=== PATIENT | female | born 1980 | race Caucasian/White ===

== ENCOUNTER 2016-11-12 18:23 | Emergency (ER) | payer OTHER ==
[~2016-11-12] VITALS: Wt 72.6 kg
[~2016-11-12 18:23] MED LIST: ADDERALL10 MG PO; AMOXICILLIN500 MG PO; AMOXIL500 MG PO; ANAPROX DS550 MG PO; BACTRIM DS 8001 TA1 PO; FLEXERIL10 MG PO; FLEXERIL5 MG PO; FLINTSTONES1 CTB PO; Fioricet 325 MG1 TAB PO; IBU-TAB800 MG PO; K-DUR 20MEQ20 MEQ PO; KEFLEX500 MG PO; MACROBID100 M1 PO; MOTRIN800 MG PO; NKHM; PEN-VEE K500 MG PO; PENICILLIN V500 MG PO; PERCOCET 325 MG1 TA6 PO; PREDNISONE10 MG PO; PRENATAL1 TA1 PO; PROVERA5 MG PO; ROBAXIN500 MG PO; ROBITUSSIN DM 105 ML PO; SUBOXONE 2 MG-01 TA2 SL; SUBOXONE 8 MG-21 TA2 SL; SUBUTEX8 M1 SL; TRAMADOL HCL50 MG PO; TYLENOL 8 HOUR650 MG PO; ULTRAM50 MG PO; VALTREX1 GM PO; VENTOLIN H0.09 MG/AC INH; ZITHROMAX Z PA250 MG PO; Zofran4 MG PO; [UNRECOGNIZED DRUG - OTHER] PO
[2016-11-12 18:41] VITALS: BP 136/86
[2016-11-12] MEDS ORDERED: ZOFRAN ODT4 MG SL (19:07)
[2016-11-12] MEDS ORDERED: CLINDAMYCIN HC300 MG PO (19:07)
== END 2016-11-12 19:32 | disposition home or self-care (01) ==
LOC: ED 18:23
DX: T36.0X5A Adverse effect of penicillins, initial encounter (principal); K04.7 Periapical abscess without sinus; F17.200 Nicotine dependence, unspecified, uncomplicated

== ENCOUNTER 2017-05-19 21:43 | Inpatient (IN) | payer OTHER ==
[~2017-05-19] VITALS: Ht 175.2 cm; Wt 68.5 kg
--- NOTE | ~2017-05-19 | O ---
[place], [place] OPERATIVE NOTE NAME: RODRIGO MIN UNIT #: [id number] ROOM: 525 DOCTOR: BLESSING DOSS MD BIRTHDATE: [birth year] DOS: GASTRO-ENDOSCOPIC REPORT HISTORY OF PRESENT ILLNESS: A 37-year-old patient who has presented with chief complaint of abdominal pain amongst one of her complaints and the patient with history of recreational drugs and nicotine ____. The CT scan of the abdomen was suspecting for right-sided colitis. Drug screening was positive for amphetamines and cocaine. PAST MEDICAL HISTORY: Not following medically. PAST SURGICAL HISTORY: Hysterectomy. SOCIAL HISTORY: As identified drug and nicotine. FAMILY HISTORY: Noncontributory. ALLERGIES: PENICILLIN. PROCEDURE: Today's procedure part of investigation is colonoscopy, plus snare polypectomy, plus tattoo marking of the site of the polypectomy. PREMEDICATION: Versed and Diprivan. SCOPE: Olympus forward-viewing colonoscope 10L video. REPORT: After putting the patient in the left lateral position and after application of lubricant to the scope, the scope was introduced. Thereafter, under direct visualization, I advanced through a tortuous colon with retained large volume of liquid stool. A polypoid lesion somewhere about proximal transverse colon or so was identified. With the snare deeply was polypectomized and site was deeply coagulated. Tattoo marking of 2 mL was placed in case the polyp tissue is going to be carcinoma, so that this area can be addressed. Base of the cecum explored, appendiceal orifice identified, ileocecal valve was defined. No colitis seen. The patient extubated after the polyp sample was removed, tolerated procedure well. IMPRESSION: Tortuous colon, Irregular polypoid lesion at proximal transverse colon, status post snare polypectomy with ____ coagulation. I remain concerned about the malignancy on the tissue. Polypectomy site has been tattoo marked for future reference. PLAN AND DISCUSSION: Please follow as outpatient and clinical reassessment. [place], [place] OPERATIVE NOTE NAME: RODRIGO MIN UNIT #: [id number] ROOM: 525 DOCTOR: BLESSING DOSS MD BIRTHDATE: [birth year] BLESSING DOSS MD CM:OPRECORD:OPERATIVE NOTE 1504 [id number] BLESSING DOSS MD 05/21/17 1729 interface
[~2017-05-19 21:43] MED LIST changes: +CLINDAMYCIN HC300 MG PO; +ZOFRAN ODT4 MG SL
[2017-05-19 21:45] VITALS: BP 141/81
[2017-05-19 22:10] VITALS: BP 122/66
--- NOTE | 2017-05-19 22:19 | NUR ---
PATIENT GIVEN URINE SPECIMEN CUP. INFORMED PATIENT THAT WE NEED A SPECIMEN SOON SHE CAN. PATIENT WILL USE CALL LIGHT WHEN SHE IS READY TO URINATE.
[2017-05-19 22:34] LABS: BASO % 0.3 % (0.0-1.0); EOS % 0.6 % (1.0-4.0); HEMATOCRIT 38.4 % (37.0-47.0); HEMOGLOBIN 13.3 g/dl (12.0-16.0); LYMPH # 0.5 10*3/uL (1.3-4.4); LYMPH % 6.7 % (27.0-41.0); MEAN CELL VOLUME 83.1 fl (81.0-99.0); MEAN CORPUSCULAR HGB 28.8 pg (27.0-31.0); MEAN CORPUSCULAR HGB CONC 34.6 g/dl (33.0-37.0); MEAN PLATELET VOLUME 10.2 fl (9.6-12.3); MONO # 0.4 10*3/uL (0.1-1.0); MONO % 5.2 % (3.0-9.0); NEUT # 6.2 10*3/uL (2.3-7.9); NEUT % 87.1 % (47.0-73.0); PLATELET COUNT AUTOMATED 157 10*3/uL (130-400); RED BLOOD COUNT 4.62 10*6/uL (4.10-5.10); WHITE BLOOD COUNT 7.2 10*3/uL (4.8-10.8)
--- NOTE | 2017-05-19 22:45 | NUR ---
PATIENT RETURNED TO ROOM FROM CAT SCAN. IV FLUIDS INFUSING.
[2017-05-19 22:51] LABS: ALBUMIN 3.6 gm/dl (3.1-4.5); ALKALINE PHOSPHATASE 90 U/L (45-117); BUN 10 mg/dl (7-24); CHLORIDE 105 mmol/L (98-107); CREATININE 0.86 mg/dL (0.55-1.02); POTASSIUM 3.3 mmol/L (3.5-5.1); SGOT/AST 70 IU/L (3-35); SGPT/ALT 99 U/L (12-78); SODIUM 139 mmol/L (136-145); TOTAL PROTEIN 7.8 gm/dL (6.4-8.2)
[2017-05-19 22:54] LABS: TROPONIN I < 0.015 ng/ml (<0.045)
[2017-05-19 23:03] VITALS: BP 109/59
[2017-05-19 23:11] LABS: BILIRUBIN NEGATIVE (NEGATIVE); BLOOD NEGATIVE (NEGATIVE); CLARITY SL CLOUDY (CLEAR); COLOR YELLOW (YELLOW); GLUCOSE NEGATIVE (NEGATIVE); KETONE NEGATIVE (NEGATIVE); LEUKO ESTERASE NEGATIVE (NEGATIVE); NITRITE NEGATIVE (NEGATIVE); PH 6.5 (5.0-9.0); UROBILINOGEN 0.2 E.U./dl (0.2-1.0)
[2017-05-19 23:20] LABS: URINE AMPHETAMINES > 1000 (1000ng/ml); URINE BARBITURATES < 200 (200ng/ml); URINE BENZODIAZEPINES < 200 (200ng/ml); URINE CANNABINOIDS (THC) < 50 (50ng/ml); URINE COCAINE > 300 (300ng/ml); URINE METHADONE < 300 (300ng/ml); URINE OPIATES < 300 (300ng/ml)
[2017-05-19 23:24] LABS: BACTERIA 2+; EPITHELIAL CELLS 30-35; YEAST 1+
[2017-05-19 23:25] LABS: URINE PHENCYCLIDINE < 25 (25ng/ml)
[2017-05-20] VITALS: BP 112/58
[2017-05-20 00:05] VITALS: BP 112/58
--- NOTE | 2017-05-20 00:32 | NUR ---
A 37, admitted to , under the services of TOBI Dawson DO with a diagnosis of COLITIS AND SEPSIS. Chief complaint is NOT FEELING WELL THE LAST FEW DAYS, FEVER, ABDOMINAL TENDERNESS IN ALL QUADRANTS, PATIENT WAS UNRESPONSIVE PER FAMILY, EMS CALLED EMS REPORTS PATIENT WAS RESPONSIVE TO VOICE AND STIMULI. Patient arrived via BED from ER. Monitor applied. Initial assessment completed. Vital signs taken and recorded. TOBI DAWSON DO notified of admission to the unit. Orders received. See assessment for past medical history, medications and allergies. Patient and/or family oriented to unit. [facility] visitation policy reviewed. Clothing/patient valuable form completed. ALEENA COVINGTON
--- NOTE | 2017-05-20 01:30 | NUR ---
LAB HERE AND ALEX TROPONIN LEVEL A CORRECT TIME FROM LAST ONE. NEXT DRAW TIME IS 0430.
--- NOTE | 2017-05-20 03:40 | NUR ---
24 HR chart check completed.
[2017-05-20 04:39] LABS: BASO # 0.1 10*3/uL (0.0-0.1); BASO % 0.3 % (0.0-1.0); EOS % 0.2 % (1.0-4.0); HEMATOCRIT 36.1 % (37.0-47.0); HEMOGLOBIN 12.2 g/dl (12.0-16.0); LYMPH # 1.2 10*3/uL (1.3-4.4); LYMPH % 8.4 % (27.0-41.0); MEAN CELL VOLUME 84.3 fl (81.0-99.0); MEAN CORPUSCULAR HGB 28.5 pg (27.0-31.0); MEAN CORPUSCULAR HGB CONC 33.8 g/dl (33.0-37.0); MEAN PLATELET VOLUME 9.8 fl (9.6-12.3); MONO # 0.9 10*3/uL (0.1-1.0); NEUT # 12.3 10*3/uL (2.3-7.9); NEUT % 84.8 % (47.0-73.0); PLATELET COUNT AUTOMATED 171 10*3/uL (130-400); RED BLOOD COUNT 4.28 10*6/uL (4.10-5.10); RED CELL DISTRI WIDTH 14.2 % (0-14.5); WHITE BLOOD COUNT 14.6 10*3/uL (4.8-10.8)
[2017-05-20 04:49] LABS: ACT PARTIAL THROMBO TIME 29.1 SECONDS (20.8-31.5); INTERNATIONAL NORM RATIO 1.1 (2.0-3.5)
[2017-05-20 05:09] LABS: BUN 9 mg/dl (7-24); CHLORIDE 107 mmol/L (98-107); HDL CHOLESTEROL 39 mg/dl (40-60); POTASSIUM 3.9 mmol/L (3.5-5.1); SODIUM 140 mmol/L (136-145); TRIGLYCERIDES 48 mg/dl (<150); VLDL CHOLESTEROL 10 mg/dL (6-40)
[2017-05-20 05:15] LABS: CHOLESTEROL 95 mg/dL (<200); LDL CHOLESTEROL 46 mg/dL (9-159); THYROID STIM HORMONE (HS) 0.915 uIU/ml (0.358-4.75)
[2017-05-20 06:26] LABS: VITAMIN D, 25-HYDROXY 19.6 ng/mL (30-100)
[2017-05-20] MEDS ORDERED: ADDERALL 10 MG10 MG PO (06:45)
--- NOTE | 2017-05-20 08:00 | NUR ---
PATIENT RESTING IN BED. ADMITS TO SOME PAIN BUT IS REFUSING PAIN MEDICATION AT THIS TIME. VOICES NO OTHER COMPLAINTS. BED IS IN LOW POSITION. CALL LIGHT IS WITHIN REACH.
[2017-05-20 08:03] VITALS: BP 96/50
--- NOTE | 2017-05-20 08:30 | NUR ---
WATCH TECHNICIAN VS. PT IS ASLEEP AND DOESNT WAKEN TO CALLING HER NAME.
[2017-05-20 11:53] VITALS: BP 113/72
--- NOTE | 2017-05-20 12:59 | NUR ---
DR DOSS NOTIFIED OF CONSULT. NEW ORDERS RECEIVED.
[2017-05-20 16:48] VITALS: BP 110/63
[2017-05-20 20:00] VITALS: BP 102/55
--- NOTE | 2017-05-20 21:05 | NUR ---
24 HR chart check completed.
[2017-05-21] VITALS (8 sets, daily range): BP systolic 82–120; BP diastolic 42–70
--- NOTE | 2017-05-21 06:22 | NUR ---
PT UNABLE TO DESCRIBE A CLEAR STOOL. FLEETS ENEMA GIVEN PER ORDER. SEE MAR.
--- NOTE | 2017-05-21 07:02 | NUR ---
PT. CURRENTLY UP IN BATHROOM. UNABLE TO REPORT RESULTS OF FLEETS ENEMA AT THIS TIME.
[2017-05-21 08:13] LABS: HEPATITIS B SURFACE AG Negative (Negative)
--- NOTE | 2017-05-21 08:15 | NUR ---
PT UP IN BATHROOM WASHING UP FOR COLONOSCOPY, PT ADMINISTERED FLEETS ENEMA BY HERSELF, INSTRUCTED PT NOT TO FLUSH TOILET SO WE CAN ASSESS HER STATUS AND IF SHE REQUIRES FURTHER ENEMAS.
--- NOTE | 2017-05-21 08:30 | NUR ---
DR PATRICIO IN TO SEE PT AT THIS TIME TO EXPLAIN COLONOSCOPY.
--- NOTE | 2017-05-21 08:45 | NUR ---
IN TO SEE PT AND TO ASSESS PROGRESS AFTER FLEETS ENEMA. PT'S STOOL IS STILL DARK BROWN LIQUID. EDUCATED PT ON COMPLETING TAP WATER ENEMAS UNTIL MORE CLEAR. PT VOICED UNDERSTANDING. PT STATES SHE CAN DO ENEMAS HERSELF. INSTRUCTED PT TO CALL WHEN FIRST ENEMA IS COMPLETE SO I CAN ASSESS RESULTS.
[2017-05-21 09:13] LABS: ALBUMIN 3.1 gm/dl (3.1-4.5); BASO % 0.6 % (0.0-1.0); BUN 10 mg/dl (7-24); CHLORIDE 108 mmol/L (98-107); EOS # 0.3 10*3/uL (0.0-0.4); HEMATOCRIT 35.9 % (37.0-47.0); HEMOGLOBIN 11.8 g/dl (12.0-16.0); LYMPH # 2.3 10*3/uL (1.3-4.4); LYMPH % 35.1 % (27.0-41.0); MEAN CELL VOLUME 85.1 fl (81.0-99.0); MEAN CORPUSCULAR HGB CONC 32.9 g/dl (33.0-37.0); MEAN PLATELET VOLUME 10.6 fl (9.6-12.3); MONO # 0.7 10*3/uL (0.1-1.0); MONO % 9.9 % (3.0-9.0); NEUT # 3.2 10*3/uL (2.3-7.9); NEUT % 49.2 % (47.0-73.0); PLATELET COUNT AUTOMATED 172 10*3/uL (130-400); POTASSIUM 3.7 mmol/L (3.5-5.1); RED BLOOD COUNT 4.22 10*6/uL (4.10-5.10); RED CELL DISTRI WIDTH 14.2 % (0-14.5); SODIUM 141 mmol/L (136-145); WHITE BLOOD COUNT 6.6 10*3/uL (4.8-10.8)
[2017-05-21 09:18] LABS: ALKALINE PHOSPHATASE 71 U/L (45-117); CREATININE 0.74 mg/dL (0.55-1.02); SGOT/AST 75 IU/L (3-35); SGPT/ALT 97 U/L (12-78); TOTAL PROTEIN 6.9 gm/dL (6.4-8.2)
--- NOTE | 2017-05-21 09:36 | NUR ---
IN TO SEE PT'S PROGRESS WITH ENEMA, PT BACK IN BED AND TOILET FLUSHED, BUT PT STATES IT WAS PRETTY CLEAR, ASKED IF SHE WOULD LIKE TO DO ANOTHER ENEMA, PT DENIED SAID SHE DIDN'T THINK IT WAS NECESSARY. REINFORCED THAT IF SHE'S NOT PROPERLY PREPPED THEY MAY NOT GET A GOOD LOOK FOR HER COLONOSCOPY. PT VERBALIZED UNDERSTANDING, AND STATES SHE THINKS THE ONE TAP WATER WAS SUFFICIENT.
--- NOTE | 2017-05-21 12:41 | NUR ---
PT OFF FLOOR FOR COLO AT THIS TIME.
--- NOTE | 2017-05-21 15:20 | NUR ---
PT BACK FROM SURGERY AT THIS TIME.
--- NOTE | 2017-05-21 15:43 | NUR ---
SPOKE WITH DR DOSS REGARDING PT, STATES PT MAY HAVE REGULAR DIET AND SHE IS OK FOR DISCHARGE FROM THEIR STANDPOINT.
[2017-05-21] MEDS ORDERED: Vitamin D PO (15:58)
[2017-05-21] MEDS ORDERED: FLAGYL500 MG PO (15:58)
[2017-05-21] MEDS ORDERED: VITAMIN D-32000 UNIT PO (15:59)
[2017-05-21 16:03] LABS: HEPATITIS C VIRUS ANTIBODY >11.0 s/co (0.0-0.9)
--- NOTE | 2017-05-21 16:09 | NUR ---
DR REBOLLAR UPDATED THAT PT IS REQUESTING TO BE DISCHARGED, IF SHE ISN'T GOING TO BE DISCHARGED SHE WILL BE SIGNING HERSELF OUT. ALSO NOTIFIED THAT LAB CALLED AND PT IS HEP C+. STATES HE WILL BE UP TO SEE PT AND WILL DISCHARGE PT.
--- NOTE | 2017-05-21 16:27 | NUR ---
DR REBOLLAR IN TO SEE PT TO DISCUSS LAB RESULTS.
--- NOTE | 2017-05-21 17:00 | NUR ---
Discharge instructions reviewed with patient/family. Patient receptive and verbalizes understanding. Follow-up care arranged. Written instructions given to patient/family. IV site and retail sales merchandiser development removed. Pt denied need for transport to [facility]. SIDNEY LEUNG
== END 2017-05-21 17:00 | disposition home or self-care (01) | DRG 871 ==
LOC: ED 21:43 → EDHOLD 23:20 → 5E 23:20
PROVIDERS: Internal Medicine; Internal Medicine Nephrology; Student in an Organized Health Care Education/Training Program; ADMIT Internal Medicine
PROC: 0DBL8ZZ Excision of Transverse Colon, Via Natural or Artificial Opening Endoscopic (ICD-10-PCS; principal; 2017-05-21)
DX: A41.9 Sepsis, unspecified organism (principal); G93.41 Metabolic encephalopathy; R65.20 Severe sepsis without septic shock; R74.0 Nonspecific elevation of levels of transaminase and lactic acid dehydrogenase [LDH]; K63.5 Polyp of colon; F15.10 Other stimulant abuse, uncomplicated; F90.9 Attention-deficit hyperactivity disorder, unspecified type; F14.10 Cocaine abuse, uncomplicated; Z72.0 Tobacco use; Z90.710 Acquired absence of both cervix and uterus; Z88.0 Allergy status to penicillin; Z71.6 Tobacco abuse counseling; Z79.899 Other long term (current) drug therapy; Z82.5 Family history of asthma and other chronic lower respiratory diseases

== ENCOUNTER 2017-08-26 21:46 | Emergency (ER) | payer OTHER ==
[~2017-08-26] VITALS: Ht 175.2 cm; Wt 67.1 kg
[~2017-08-26 21:46] MED LIST changes: +ADDERALL 10 MG10 MG PO; +FLAGYL500 MG PO; +VITAMIN D-32000 UNIT PO; +Vitamin D PO
[2017-08-26 21:57] VITALS: BP 128/75
[2017-08-26] MEDS ORDERED: SUBOXONE 2 MG-1 EACH SL (21:59)
[2017-08-26] MEDS ORDERED: DELTASONE20 M1 PO (22:12)
== END 2017-08-26 22:25 | disposition home or self-care (01) ==
LOC: ED 21:46
DX: R21 Rash and other nonspecific skin eruption (principal); T78.40XA Allergy, unspecified, initial encounter; F17.200 Nicotine dependence, unspecified, uncomplicated; Z90.710 Acquired absence of both cervix and uterus; Z79.899 Other long term (current) drug therapy; Z88.0 Allergy status to penicillin; Y92.9 Unspecified place or not applicable

== ENCOUNTER 2017-10-10 19:03 | Emergency (ER) | payer OTHER ==
[~2017-10-10] VITALS: Ht 175.2 cm; Wt 67.1 kg
[~2017-10-10 19:03] MED LIST changes: +DELTASONE20 M1 PO; +SUBOXONE 2 MG-1 EACH SL
[2017-10-10 19:06] VITALS: BP 119/67
[2017-10-10] MEDS ORDERED: IBUPROFEN600 MG PO (19:34)
[2017-10-10] MEDS ORDERED: CLINDAMYCIN HC300 MG PO (19:34)
== END 2017-10-10 19:42 | disposition home or self-care (01) ==
LOC: ED 19:03
DX: K08.89 Other specified disorders of teeth and supporting structures (principal); Z88.0 Allergy status to penicillin; Z88.1 Allergy status to other antibiotic agents; Z79.899 Other long term (current) drug therapy

== ENCOUNTER 2018-02-02 16:03 | Emergency (ER) | payer OTHER ==
[~2018-02-02] VITALS: Ht 172.7 cm; Wt 68.0 kg
[~2018-02-02 16:03] MED LIST changes: +IBUPROFEN600 MG PO
[2018-02-02 16:05] VITALS: BP 124/56
[2018-02-02] MEDS ORDERED: INDOMETHACIN50 MG PO (17:35)
== END 2018-02-02 17:43 | disposition home or self-care (01) ==
LOC: ED 16:03
DX: M79.89 Other specified soft tissue disorders (principal); Z88.0 Allergy status to penicillin; Z88.1 Allergy status to other antibiotic agents; Z79.899 Other long term (current) drug therapy

== ENCOUNTER 2018-04-13 13:47 | Emergency (ER) | payer OTHER ==
[~2018-04-13] VITALS: Ht 172.7 cm; Wt 68.0 kg
[~2018-04-13 13:47] MED LIST changes: +INDOMETHACIN50 MG PO
[2018-04-13 13:50] VITALS: BP 130/81
[2018-04-13] MEDS ORDERED: PROAIR HFA8.5 GM INH (15:00)
[2018-04-13] MEDS ORDERED: PREDNISONE20 M1 PO (15:00)
[2018-04-13] MEDS ORDERED: TESSALON PERLE100 M1 PO (15:00)
[2018-04-13] MEDS ORDERED: ZITHROMAX250 MG PO (15:00)
== END 2018-04-13 16:30 | disposition home or self-care (01) ==
LOC: ED 13:47
DX: J40 Bronchitis, not specified as acute or chronic (principal); J02.9 Acute pharyngitis, unspecified; F17.210 Nicotine dependence, cigarettes, uncomplicated; Z88.0 Allergy status to penicillin; Z88.1 Allergy status to other antibiotic agents; Z79.899 Other long term (current) drug therapy

== ENCOUNTER 2019-07-30 16:16 | Emergency (ER) | payer OTHER ==
[~2019-07-30] VITALS: Ht 175.2 cm; Wt 63.5 kg
[~2019-07-30 16:16] MED LIST changes: +PREDNISONE20 M1 PO; +PROAIR HFA8.5 GM INH; +TESSALON PERLE100 M1 PO; +ZITHROMAX250 MG PO
[2019-07-30 16:27] VITALS: BP 127/75
[2019-07-30] MEDS ORDERED: IBU800 MG PO (16:55)
[2019-07-30] MEDS ORDERED: CLEOCIN HCL150 MG PO (16:55)
== END 2019-07-30 17:33 | disposition home or self-care (01) ==
LOC: ED 16:16
DX: K04.7 Periapical abscess without sinus (principal); B34.9 Viral infection, unspecified; K02.9 Dental caries, unspecified; J45.909 Unspecified asthma, uncomplicated; F17.200 Nicotine dependence, unspecified, uncomplicated; Z88.0 Allergy status to penicillin; Z88.1 Allergy status to other antibiotic agents; Z79.899 Other long term (current) drug therapy

== ENCOUNTER 2020-01-23 22:54 | Emergency (ER) | payer OTHER ==
[~2020-01-23] VITALS: Ht 172.7 cm; Wt 63.5 kg
[~2020-01-23 22:54] MED LIST changes: +CLEOCIN HCL150 MG PO; +IBU800 MG PO
[2020-01-23 23:56] LABS: BASO # 0.1 10*3/uL (0.0-0.1); BASO % 0.8 % (0.0-1.0); EOS # 0.5 10*3/uL (0.0-0.4); EOS % 5.2 % (1.0-4.0); HEMATOCRIT 43.3 % (37.0-47.0); LYMPH % 31.7 % (27.0-41.0); MEAN CELL VOLUME 89.1 fl (81.0-99.0); MEAN CORPUSCULAR HGB 31.9 pg (27.0-31.0); MEAN CORPUSCULAR HGB CONC 35.8 g/dl (33.0-37.0); MEAN PLATELET VOLUME 10.4 fl (9.6-12.3); MONO # 0.9 10*3/uL (0.1-1.0); MONO % 9.1 % (3.0-9.0); PLATELET COUNT AUTOMATED 197 10*3/uL (130-400); RED BLOOD COUNT 4.86 10*6/uL (4.10-5.10); RED CELL DISTRI WIDTH 13.2 % (0-14.5); WHITE BLOOD COUNT 9.5 10*3/uL (4.8-10.8)
[2020-01-24 00:13] LABS: ALBUMIN 3.2 gm/dl (3.1-4.5); ALKALINE PHOSPHATASE 130 U/L (45-117); BUN 17 mg/dl (7-24); CHLORIDE 111 mmol/L (98-107); CREATININE 0.87 mg/dL (0.55-1.02); LIPASE 195 U/L (73-393); POTASSIUM 3.2 mmol/L (3.5-5.1); SGOT/AST 127 IU/L (3-35); SGPT/ALT 238 U/L (12-78); SODIUM 140 mmol/L (136-145); TOTAL PROTEIN 6.8 gm/dL (6.4-8.2)
[2020-01-24 00:58] VITALS: BP 97/53
== END 2020-01-24 01:30 | disposition home or self-care (01) ==
LOC: ED 22:54
PROVIDERS: Nurse Practitioner Family
DX: L50.9 Urticaria, unspecified (principal); F41.9 Anxiety disorder, unspecified; J45.909 Unspecified asthma, uncomplicated; F17.200 Nicotine dependence, unspecified, uncomplicated; Z79.899 Other long term (current) drug therapy; Z79.2 Long term (current) use of antibiotics

== ENCOUNTER 2021-12-01 16:41 | Emergency (ER) | payer OTHER ==
[~2021-12-01] VITALS: Ht 175.2 cm; Wt 62.6 kg
[2021-12-01 17:26] VITALS: BP 146/79
[2021-12-01] MEDS ORDERED: VIBRA-TAB100 MG PO (17:51)
[2021-12-01] MEDS ORDERED: PREDNISONE10 MG PO (17:51)
[2021-12-01] MEDS ORDERED: PROAIR HFA8.5 GM INH (17:51)
== END 2021-12-01 18:23 | disposition home or self-care (01) ==
LOC: ED 16:41
DX: J40 Bronchitis, not specified as acute or chronic (principal); Z88.0 Allergy status to penicillin; Z88.1 Allergy status to other antibiotic agents; Z90.710 Acquired absence of both cervix and uterus; Z87.891 Personal history of nicotine dependence

== ENCOUNTER 2022-05-10 11:46 | Emergency (ER) | payer OTHER ==
[~2022-05-10] VITALS: Ht 175.2 cm; Wt 72.6 kg
[~2022-05-10 11:46] MED LIST changes: +VIBRA-TAB100 MG PO
[2022-05-10 12:09] VITALS: BP 146/87
[2022-05-10] MEDS ORDERED: MEDROL DOSEPAK4 MG PO (13:20)
== END 2022-05-10 13:33 | disposition home or self-care (01) ==
LOC: ED 11:46
DX: S46.911A Strain of unspecified muscle, fascia and tendon at shoulder and upper arm level, right arm, initial encounter (principal); F17.200 Nicotine dependence, unspecified, uncomplicated; Z88.0 Allergy status to penicillin; Z88.1 Allergy status to other antibiotic agents; Z90.710 Acquired absence of both cervix and uterus; W22.01XA Walked into wall, initial encounter; Y93.89 Activity, other specified; Y92.89 Other specified places as the place of occurrence of the external cause; Y99.8 Other external cause status

== ENCOUNTER 2024-04-09 04:23 | Emergency (ER) | payer OTHER ==
[~2024-04-09] VITALS: Ht 175.2 cm; Wt 84.4 kg
[~2024-04-09 04:23] MED LIST changes: +MEDROL DOSEPAK4 MG PO
[2024-04-09] MEDS ORDERED: Dicyclomine Hydrochloride 20 MG/10 ML OSYR PO STA (04:44)
[2024-04-09] MEDS ORDERED: MG-AL HYDROXIDE/SIMETICONE 30 ML UDC PO STA (04:44)
[2024-04-09] MEDS ORDERED: Lidocaine Hydrochloride 15 ML UDC PO STA (04:44)
[2024-04-09] MEDS ORDERED: SODIUM CHLORIDE 0.9% 1,000 ML IV ONE (04:45)
[2024-04-09 05:13] LABS: CHLORIDE 108 mmol/L (98-107); LIPASE 40 U/L (12-53)
[2024-04-09 05:18] LABS: BUN < 5 mg/dl (9-23)
[2024-04-09 05:35] LABS: BILIRUBIN Negative (Negative); BLOOD Negative (Negative); CLARITY Cloudy (Clear); COLOR Yellow (Yellow); GLUCOSE Negative (Negative); KETONE Negative (Negative); LEUKO ESTERASE Negative (Negative); NITRITE Negative (Negative); SPECIFIC GRAVITY <= 1.005 (1.001-1.030)
[2024-04-09 05:42] LABS: EPITHELIAL CELLS 16-20; MUCOUS 1+; RBC 0-2 rbc/hpf (0-2); WBC 0-2 wbc/hpf (0-5)
[2024-04-09 05:43] LABS: URINE AMPHETAMINES Positive (1000ng/ml); URINE BARBITURATES Negative (200ng/ml); URINE BENZODIAZEPINES Negative (200ng/ml); URINE CANNABINOIDS (THC) Negative (50ng/ml); URINE COCAINE Negative (300ng/ml); URINE METHADONE Negative (300ng/ml); URINE OPIATES Negative (300ng/ml); URINE PHENCYCLIDINE Negative (25ng/ml)
[2024-04-09] MEDS ORDERED: POTASSIUM CHLORIDE 20 MEQ TAB PO ONE (05:55)
[2024-04-09] MEDS ORDERED: LORazepam 2 MG/ML VIAL IV ONE (05:55)
[2024-04-09 06:02] LABS: BASO # 0.1 10*3/uL (0.0-0.1); BASO % 0.8 % (0.0-1.0); EOS # 0.2 10*3/uL (0.0-0.4); EOS % 3.2 % (1.0-4.0); HEMATOCRIT 45.3 % (37.0-47.0); MEAN CELL VOLUME 90.1 fl (81.0-99.0); MEAN CORPUSCULAR HGB 31.4 pg (27.0-31.0); MEAN CORPUSCULAR HGB CONC 34.9 g/dl (33.0-37.0); MEAN PLATELET VOLUME 10.2 fl (9.6-12.3); MONO # 0.7 10*3/uL (0.1-1.0); MONO % 9.6 % (3.0-9.0); NEUT # 4.5 10*3/uL (2.3-7.9); NEUT % 60.3 % (47.0-73.0); PLATELET COUNT AUTOMATED 209 10*3/uL (130-400); RED BLOOD COUNT 5.03 10*6/uL (4.10-5.10); RED CELL DISTRI WIDTH 13.5 % (0-14.5); WHITE BLOOD COUNT 7.5 10*3/uL (4.8-10.8)
[2024-04-09] MEDS ORDERED: ACID REDUCER10 MG PO (06:10)
[2024-04-09 06:28] VITALS: BP 12/75
[2024-04-10] MEDS ORDERED: LAMICTAL100 MG PO ×2 (07:45)
[2024-04-10] MEDS ORDERED: BUSPIRONE30 MG PO (07:45)
[2024-04-10] MEDS ORDERED: OMEPRAZOLE40 MG PO (07:46)
== END 2024-04-09 06:29 | disposition home or self-care (01) ==
LOC: ED 04:23
PROVIDERS: Internal Medicine
DX: K21.9 Gastro-esophageal reflux disease without esophagitis (principal); F41.9 Anxiety disorder, unspecified; R11.2 Nausea with vomiting, unspecified; F15.10 Other stimulant abuse, uncomplicated; F14.10 Cocaine abuse, uncomplicated; F17.200 Nicotine dependence, unspecified, uncomplicated; Z88.0 Allergy status to penicillin; Z88.1 Allergy status to other antibiotic agents; Z90.710 Acquired absence of both cervix and uterus; Z98.890 Other specified postprocedural states; Z79.899 Other long term (current) drug therapy

== ENCOUNTER 2024-04-10 07:34 | Emergency (ER) | payer OTHER ==
[~2024-04-10] VITALS: Ht 175.2 cm; Wt 81.6 kg
[~2024-04-10 07:34] MED LIST changes: +ACID REDUCER10 MG PO
[2024-04-10 07:44] VITALS: BP 161/99
[2024-04-10] MEDS ORDERED: LAMICTAL100 MG PO ×2 (07:45)
[2024-04-10] MEDS ORDERED: BUSPIRONE30 MG PO (07:45)
[2024-04-10] MEDS ORDERED: OMEPRAZOLE40 MG PO (07:46)
[2024-04-10] MEDS ORDERED: SODIUM CHLORIDE 0.9% 1,000 ML IV ONE (07:55)
[2024-04-10 08:14] LABS: BASO # 0.1 10*3/uL (0.0-0.1); EOS # 0.4 10*3/uL (0.0-0.4); EOS % 5.8 % (1.0-4.0); HEMATOCRIT 45.2 % (37.0-47.0); LYMPH # 1.8 10*3/uL (1.3-4.4); LYMPH % 29.6 % (27.0-41.0); MEAN CELL VOLUME 90.2 fl (81.0-99.0); MEAN CORPUSCULAR HGB 31.7 pg (27.0-31.0); MEAN CORPUSCULAR HGB CONC 35.2 g/dl (33.0-37.0); MEAN PLATELET VOLUME 9.9 fl (9.6-12.3); MONO # 0.6 10*3/uL (0.1-1.0); MONO % 9.1 % (3.0-9.0); NEUT # 3.3 10*3/uL (2.3-7.9); NEUT % 54.3 % (47.0-73.0); PLATELET COUNT AUTOMATED 189 10*3/uL (130-400); RED BLOOD COUNT 5.01 10*6/uL (4.10-5.10); RED CELL DISTRI WIDTH 13.6 % (0-14.5)
[2024-04-10 08:36] LABS: BUN 5 mg/dl (9-23); CHLORIDE 106 mmol/L (98-107); POTASSIUM 3.5 mmol/L (3.4-5.1)
== END 2024-04-10 09:32 | disposition home or self-care (01) ==
LOC: ED 07:34
PROVIDERS: Internal Medicine
DX: R55 Syncope and collapse (principal); F14.10 Cocaine abuse, uncomplicated; F41.9 Anxiety disorder, unspecified; F17.200 Nicotine dependence, unspecified, uncomplicated; Z88.0 Allergy status to penicillin; Z88.1 Allergy status to other antibiotic agents; Z90.710 Acquired absence of both cervix and uterus; Z98.890 Other specified postprocedural states

== ENCOUNTER 2024-04-10 20:40 | Emergency (ER) | payer OTHER ==
[~2024-04-10] VITALS: Ht 170.1 cm; Wt 80.4 kg
[~2024-04-10 20:40] MED LIST changes: +BUSPIRONE30 MG PO; +LAMICTAL100 MG PO; +OMEPRAZOLE40 MG PO
[2024-04-10 20:44] VITALS: BP 155/106
[2024-04-10] MEDS ORDERED: Ondansetron Hydrochloride 4 MG/2 ML VIAL IV ONE (20:50)
[2024-04-10] MEDS ORDERED: SODIUM CHLORIDE 0.9% 1,000 ML IV ONE (20:50)
[2024-04-10] MEDS ORDERED: IOHEXOL 300 MG/ML 100 ML VIAL IV ONE (20:55)
[2024-04-10] MEDS ORDERED: Ketorolac Tromethamine 30 MG/ML VIAL IV ONE (20:55)
[2024-04-10 21:02] LABS: BASO # 0.1 10*3/uL (0.0-0.1); EOS # 0.5 10*3/uL (0.0-0.4); EOS % 6.1 % (1.0-4.0); HEMATOCRIT 43.5 % (37.0-47.0); LYMPH # 2.8 10*3/uL (1.3-4.4); LYMPH % 37.6 % (27.0-41.0); MEAN CELL VOLUME 88.6 fl (81.0-99.0); MEAN CORPUSCULAR HGB 31.8 pg (27.0-31.0); MEAN CORPUSCULAR HGB CONC 35.9 g/dl (33.0-37.0); MONO # 0.7 10*3/uL (0.1-1.0); MONO % 9.3 % (3.0-9.0); NEUT # 3.4 10*3/uL (2.3-7.9); NEUT % 45.9 % (47.0-73.0); PLATELET COUNT AUTOMATED 205 10*3/uL (130-400); RED BLOOD COUNT 4.91 10*6/uL (4.10-5.10); RED CELL DISTRI WIDTH 13.3 % (0-14.5); WHITE BLOOD COUNT 7.4 10*3/uL (4.8-10.8)
[2024-04-10 21:18] LABS: BILIRUBIN Negative (Negative); BLOOD Negative (Negative); CLARITY Turbid (Clear); COLOR Yellow (Yellow); GLUCOSE Negative (Negative); KETONE Negative (Negative); LEUKO ESTERASE Negative (Negative); NITRITE Negative (Negative); PH 7.5 (4.5-8.0); SPECIFIC GRAVITY 1.015 (1.001-1.030)
[2024-04-10 21:24] LABS: ALKALINE PHOSPHATASE 107 U/L (46-116); CHLORIDE 111 mmol/L (98-107); LIPASE 56 U/L (12-53); POTASSIUM 3.3 mmol/L (3.4-5.1); SGPT/ALT 165 U/L (5-49); TOTAL PROTEIN 6.4 gm/dL (6.0-8.0)
[2024-04-10 21:28] LABS: BUN < 5 mg/dl (9-23)
[2024-04-11] MEDS ORDERED: POTASSIUM CHLORIDE 20 MEQ TAB PO ONE (00:25)
== END 2024-04-11 00:28 | disposition home or self-care (01) ==
LOC: ED 20:40
PROVIDERS: Physician Assistant Medical
DX: R10.13 Epigastric pain (principal); R74.01 Elevation of levels of liver transaminase levels; E87.6 Hypokalemia; K76.0 Fatty (change of) liver, not elsewhere classified; F41.9 Anxiety disorder, unspecified; F14.10 Cocaine abuse, uncomplicated; F17.200 Nicotine dependence, unspecified, uncomplicated; Z88.0 Allergy status to penicillin; Z88.1 Allergy status to other antibiotic agents; Z90.710 Acquired absence of both cervix and uterus; Z98.890 Other specified postprocedural states

== ENCOUNTER 2024-05-21 11:34 | Emergency (ER) | payer OTHER ==
[~2024-05-21] VITALS: Ht 172.7 cm; Wt 77.1 kg
[2024-05-21 11:43] VITALS: BP 158/107
[2024-05-21] MEDS ORDERED: SODIUM CHLORIDE 0.9% 1,000 ML IV ONE (11:50)
[2024-05-21 12:09] LABS: BASO % 0.8 % (0.0-1.0); EOS # 0.2 10*3/uL (0.0-0.4); EOS % 3.8 % (1.0-4.0); HEMATOCRIT 43.1 % (37.0-47.0); LYMPH # 1.7 10*3/uL (1.3-4.4); LYMPH % 31.7 % (27.0-41.0); MEAN CORPUSCULAR HGB 31.6 pg (27.0-31.0); MEAN CORPUSCULAR HGB CONC 35.5 g/dl (33.0-37.0); MONO # 0.5 10*3/uL (0.1-1.0); MONO % 8.8 % (3.0-9.0); NEUT # 2.9 10*3/uL (2.3-7.9); NEUT % 54.9 % (47.0-73.0); PLATELET COUNT AUTOMATED 213 10*3/uL (130-400); RED BLOOD COUNT 4.84 10*6/uL (4.10-5.10); RED CELL DISTRI WIDTH 13.1 % (0-14.5); WHITE BLOOD COUNT 5.3 10*3/uL (4.8-10.8)
[2024-05-21 12:09] LABS: BILIRUBIN Negative (Negative); BLOOD Negative (Negative); CLARITY Cloudy (Clear); COLOR Yellow (Yellow); GLUCOSE Negative (Negative); KETONE Trace (Negative); LEUKO ESTERASE Trace (Negative); NITRITE Negative (Negative)
[2024-05-21 12:21] LABS: BACTERIA 2+; EPITHELIAL CELLS 16-20; MUCOUS 1+
[2024-05-21 12:28] LABS: CHLORIDE 109 mmol/L (98-107); POTASSIUM 3.1 mmol/L (3.4-5.1)
[2024-05-21 12:30] LABS: BUN < 5 mg/dl (9-23)
[2024-05-21] MEDS ORDERED: POTASSIUM CHLORIDE 20 MEQ TAB PO ONE (12:40)
[2024-05-21] MEDS ORDERED: LORazepam 1 MG TAB PO ONE (13:20)
== END 2024-05-21 14:43 | disposition home or self-care (01) ==
LOC: ED 11:34
PROVIDERS: Nurse Practitioner Family
DX: F41.9 Anxiety disorder, unspecified (principal); Z20.822 Contact with and (suspected) exposure to COVID-19; E87.6 Hypokalemia; R55 Syncope and collapse; F14.10 Cocaine abuse, uncomplicated; F17.200 Nicotine dependence, unspecified, uncomplicated; Z88.0 Allergy status to penicillin; Z88.1 Allergy status to other antibiotic agents; Z90.710 Acquired absence of both cervix and uterus; Z98.890 Other specified postprocedural states; Z79.899 Other long term (current) drug therapy

== ENCOUNTER 2024-08-26 19:24 | Emergency (ER) | payer OTHER ==
[2024-08-26 19:47] VITALS: BP 162/98
[2024-08-26] MEDS ORDERED: methylPREDNISolone sod succ 125 MG VIAL IV ONE (19:55)
[2024-08-26 20:28] LABS: BASO # 0.1 10*3/uL (0.0-0.1); BASO % 0.7 % (0.0-1.0); EOS # 0.1 10*3/uL (0.0-0.4); EOS % 1.5 % (1.0-4.0); HEMATOCRIT 47.7 % (37.0-47.0); MEAN CELL VOLUME 87.7 fl (81.0-99.0); MEAN CORPUSCULAR HGB 30.9 pg (27.0-31.0); MEAN CORPUSCULAR HGB CONC 35.2 g/dl (33.0-37.0); MEAN PLATELET VOLUME 9.8 fl (9.6-12.3); MONO # 0.9 10*3/uL (0.1-1.0); MONO % 12.5 % (3.0-9.0); NEUT # 5.2 10*3/uL (2.3-7.9); NEUT % 76.3 % (47.0-73.0); PLATELET COUNT AUTOMATED 182 10*3/uL (130-400); RED BLOOD COUNT 5.44 10*6/uL (4.10-5.10); RED CELL DISTRI WIDTH 12.4 % (0-14.5); WHITE BLOOD COUNT 6.9 10*3/uL (4.8-10.8)
[2024-08-26] MEDS ORDERED: Ondansetron Hydrochloride 4 MG TAB SL ONE (20:40)
[2024-08-26 20:55] LABS: BUN 6 mg/dl (9-23); CHLORIDE 104 mmol/L (98-107); POTASSIUM 3.1 mmol/L (3.4-5.1)
[2024-08-26] MEDS ORDERED: Albuterol Sulf/Ipratropium 3 ML VIAL NEB ONE (21:05)
[2024-08-26] MEDS ORDERED: AZITHROMYCIN 250 MG TAB PO ONE (22:15)
[2024-08-26] MEDS ORDERED: MEDROL DOSEPAK4 MG PO (22:16)
[2024-08-26] MEDS ORDERED: AVPAK AZITHROM250 MG PO (22:16)
== END 2024-08-26 23:38 | disposition home or self-care (01) ==
LOC: ED 19:24
PROVIDERS: Internal Medicine
DX: J40 Bronchitis, not specified as acute or chronic (principal); F17.210 Nicotine dependence, cigarettes, uncomplicated; Z79.899 Other long term (current) drug therapy; Z20.822 Contact with and (suspected) exposure to COVID-19; Z88.1 Allergy status to other antibiotic agents; Z90.710 Acquired absence of both cervix and uterus

== ENCOUNTER 2024-10-28 07:52 | Emergency (ER) | payer OTHER ==
[~2024-10-28] VITALS: Ht 175.2 cm; Wt 74.4 kg
[~2024-10-28 07:52] MED LIST changes: +AVPAK AZITHROM250 MG PO
[2024-10-28 07:56] VITALS: BP 152/103
[2024-10-28] MEDS ORDERED: Ketorolac Tromethamine 15 MG/ML VIAL IV ONE (08:05)
[2024-10-28] MEDS ORDERED: LORazepam 1 MG TAB PO ONE (08:05)
[2024-10-28] MEDS ORDERED: SODIUM CHLORIDE 0.9% 1,000 ML IV ONE (08:05)
[2024-10-28] MEDS ORDERED: PANTOPRAZOLE SO40 MG PO (08:09)
[2024-10-28] MEDS ORDERED: BUSPIRONE HCL30 MG PO (08:09)
[2024-10-28] MEDS ORDERED: LAMOTRIGINE100 MG PO (08:10)
[2024-10-28] MEDS ORDERED: PRAZOSIN HYDROCH1 MG PO (08:11)
[2024-10-28] MEDS ORDERED: MAVYRET 100-401 EACH PO (08:11)
[2024-10-28] MEDS ORDERED: METOPROLOL SUCC25 M2 PO (08:11)
[2024-10-28 08:29] LABS: BASO # 0.1 10*3/uL (0.0-0.1); BASO % 1.2 % (0.0-1.0); EOS # 0.5 10*3/uL (0.0-0.4); EOS % 6.1 % (1.0-4.0); HEMATOCRIT 40.6 % (37.0-47.0); MEAN CELL VOLUME 90.6 fl (81.0-99.0); MEAN CORPUSCULAR HGB 32.4 pg (27.0-31.0); MEAN CORPUSCULAR HGB CONC 35.7 g/dl (33.0-37.0); MEAN PLATELET VOLUME 9.8 fl (9.6-12.3); MONO # 0.8 10*3/uL (0.1-1.0); MONO % 10.7 % (3.0-9.0); NEUT # 3.1 10*3/uL (2.3-7.9); NEUT % 41.6 % (47.0-73.0); PLATELET COUNT AUTOMATED 186 10*3/uL (130-400); RED BLOOD COUNT 4.48 10*6/uL (4.10-5.10); RED CELL DISTRI WIDTH 12.2 % (0-14.5); WHITE BLOOD COUNT 7.4 10*3/uL (4.8-10.8)
[2024-10-28 08:36] LABS: BILIRUBIN Negative (Negative); BLOOD Negative (Negative); CLARITY Clear (Clear); COLOR Yellow (Yellow); GLUCOSE Negative (Negative); KETONE Negative (Negative); LEUKO ESTERASE Negative (Negative); NITRITE Negative (Negative); PH 6.5 (4.5-8.0); SPECIFIC GRAVITY <= 1.005 (1.001-1.030); UROBILINOGEN 0.2 E.U./dl (0.0-1.0)
[2024-10-28 08:49] LABS: BACTERIA 1+; RBC 0-2 rbc/hpf (0-2); WBC 0-2 wbc/hpf (0-5)
[2024-10-28 08:51] LABS: CALCIUM OXALATE CRYSTALS Trace
[2024-10-28 08:55] LABS: BUN 13 mg/dl (9-23); CHLORIDE 110 mmol/L (98-107); POTASSIUM 3.1 mmol/L (3.4-5.1)
[2024-10-28] MEDS ORDERED: POTASSIUM CHLORIDE 20 MEQ TAB PO ONE (09:10)
== END 2024-10-28 09:30 | disposition home or self-care (01) ==
LOC: ED 07:52
PROVIDERS: Emergency Medicine
DX: R07.82 Intercostal pain (principal); E87.6 Hypokalemia; K21.9 Gastro-esophageal reflux disease without esophagitis; F90.9 Attention-deficit hyperactivity disorder, unspecified type; Z88.0 Allergy status to penicillin; Z88.1 Allergy status to other antibiotic agents; Z88.8 Allergy status to other drugs, medicaments and biological substances; Z79.899 Other long term (current) drug therapy; Z90.710 Acquired absence of both cervix and uterus; Z87.891 Personal history of nicotine dependence

== ENCOUNTER 2024-12-01 18:01 | Emergency (ER) | payer OTHER ==
[~2024-12-01] VITALS: Ht 175.2 cm; Wt 74.8 kg
[~2024-12-01 18:01] MED LIST changes: +BUSPIRONE HCL30 MG PO; +LAMOTRIGINE100 MG PO; +MAVYRET 100-401 EACH PO; +METOPROLOL SUCC25 M2 PO; +PANTOPRAZOLE SO40 MG PO; +PRAZOSIN HYDROCH1 MG PO
[2024-12-01 18:24] VITALS: BP 125/78
[2024-12-01] MEDS ORDERED: Acetaminophen/Hydrocodone 5 MG/325 MG TABLET PO ONE (18:35)
[2024-12-01] MEDS ORDERED: CYCLOBENZAPRINE5 M3 PO (19:13)
[2024-12-01] MEDS ORDERED: NAPROSYN500 MG PO (19:13)
== END 2024-12-01 19:17 | disposition home or self-care (01) ==
LOC: ED 18:01
DX: S46.912A Strain of unspecified muscle, fascia and tendon at shoulder and upper arm level, left arm, initial encounter (principal); I10 Essential (primary) hypertension; F14.10 Cocaine abuse, uncomplicated; F17.200 Nicotine dependence, unspecified, uncomplicated; Z79.899 Other long term (current) drug therapy; Z88.0 Allergy status to penicillin; Z88.1 Allergy status to other antibiotic agents; Z88.8 Allergy status to other drugs, medicaments and biological substances; Z90.710 Acquired absence of both cervix and uterus; W51.XXXA Accidental striking against or bumped into by another person, initial encounter; Y93.89 Activity, other specified; Y92.89 Other specified places as the place of occurrence of the external cause; Y99.8 Other external cause status

== ENCOUNTER 2025-03-19 16:09 | Emergency (ER) | payer OTHER ==
[~2025-03-19] VITALS: Ht 172.7 cm; Wt 78.9 kg
[~2025-03-19 16:09] MED LIST changes: +CYCLOBENZAPRINE5 M3 PO; +NAPROSYN500 MG PO
[2025-03-19 16:39] VITALS: BP 148/94
[2025-03-19] MEDS ORDERED: IOHEXOL 300 MG/ML 100 ML VIAL IV ONE (18:25)
[2025-03-19] MEDS ORDERED: MG-AL HYDROXIDE/SIMETICONE 30 ML UDC PO STA (18:28)
[2025-03-19] MEDS ORDERED: Dicyclomine Hydrochloride 20 MG/10 ML OSYR PO STA (18:28)
[2025-03-19] MEDS ORDERED: SODIUM CHLORIDE 0.9% 1,000 ML IV ONE (18:30)
[2025-03-19 18:40] LABS: BASO # 0.1 10*3/uL (0.0-0.1); BASO % 0.8 % (0.0-1.0); EOS # 0.2 10*3/uL (0.0-0.4); EOS % 2.5 % (1.0-4.0); MEAN CELL VOLUME 90.9 fl (81.0-99.0); MEAN CORPUSCULAR HGB 31.4 pg (27.0-31.0); MEAN PLATELET VOLUME 9.9 fl (9.6-12.3); MONO # 0.6 10*3/uL (0.1-1.0); MONO % 6.6 % (3.0-9.0); NEUT # 5.4 10*3/uL (2.3-7.9); NEUT % 60.4 % (47.0-73.0); NUCLEATED RED BLOOD CELL 0.0 % (0.0-0.0); NUCLEATED RED BLOOD CELL 0.0 10*3/uL (0.0-0.0); PLATELET COUNT AUTOMATED 208 10*3/uL (130-400); RED CELL DISTRI WIDTH 12.2 % (0-14.5)
[2025-03-19 19:03] LABS: BUN 10 mg/dl (9-23); SGPT/ALT 17 U/L (5-49)
[2025-03-19 19:06] LABS: BILIRUBIN Negative (Negative); BLOOD Negative (Negative); CLARITY Cloudy (Clear); COLOR Yellow (Yellow); KETONE Trace (Negative); LEUKO ESTERASE Negative (Negative); NITRITE Negative (Negative); PH 6.5 (4.5-8.0); SPECIFIC GRAVITY 1.020 (1.001-1.030); UROBILINOGEN 1.0 E.U./dl (0.0-1.0)
[2025-03-19 19:13] LABS: BACTERIA 3+; EPITHELIAL CELLS 21-30; RBC 0-2 rbc/hpf (0-2)
[2025-03-19] MEDS ORDERED: POTASSIUM CHLORIDE 20 MEQ TAB PO ONE (19:35)
[2025-03-19] MEDS ORDERED: Ciprofloxacin Hydrochloride 500 MG TAB PO ONE (20:20)
[2025-03-19] MEDS ORDERED: predniSONE 20 MG TAB PO ONE ×2 (20:20→20:30)
[2025-03-19] MEDS ORDERED: metroNIDAZOLE 500 MG TAB PO ONE (20:20)
[2025-03-19] MEDS ORDERED: CIPRO500 MG PO (20:23)
[2025-03-19] MEDS ORDERED: METRONIDAZOLE500 M1 PO (20:23)
[2025-03-19] MEDS ORDERED: PREDNISONE20 M1 PO (20:23)
== END 2025-03-19 20:40 | disposition home or self-care (01) ==
LOC: ED 16:09
PROVIDERS: Nurse Practitioner Family
DX: K52.9 Noninfective gastroenteritis and colitis, unspecified (principal); E87.6 Hypokalemia; Z90.710 Acquired absence of both cervix and uterus; Z88.0 Allergy status to penicillin; Z88.1 Allergy status to other antibiotic agents; Z88.8 Allergy status to other drugs, medicaments and biological substances; R10.13 Epigastric pain; F41.9 Anxiety disorder, unspecified; Z86.19 Personal history of other infectious and parasitic diseases

== ENCOUNTER 2025-04-20 21:52 | Emergency (ER) | payer OTHER ==
[~2025-04-20] VITALS: Ht 175.2 cm; Wt 77.1 kg
[~2025-04-20 21:52] MED LIST changes: +CIPRO500 MG PO; +METRONIDAZOLE500 M1 PO
[2025-04-20] MEDS ORDERED: SODIUM CHLORIDE 0.9% 1,000 ML IV ONE (23:30)
[2025-04-20] MEDS ORDERED: diphenhydrAMINE hydrochloride 50 MG/ML VIAL IV ONE (23:35)
[2025-04-20] MEDS ORDERED: Metoclopramide Hydrochloride 10 MG/2 ML VIAL IV ONE (23:35)
[2025-04-21 00:23] LABS: BASO # 0.0 10*3/uL (0.0-0.1); BASO % 0.1 % (0.0-1.0); EOS # 0.0 10*3/uL (0.0-0.4); EOS % 0.0 % (1.0-4.0); MEAN CELL VOLUME 89.3 fl (81.0-99.0); MEAN CORPUSCULAR HGB 31.3 pg (27.0-31.0); MEAN PLATELET VOLUME 10.0 fl (9.6-12.3); MONO # 0.6 10*3/uL (0.1-1.0); MONO % 5.0 % (3.0-9.0); NEUT # 9.7 10*3/uL (2.3-7.9); NEUT % 83.6 % (47.0-73.0); NUCLEATED RED BLOOD CELL 0.0 % (0.0-0.0); NUCLEATED RED BLOOD CELL 0.0 10*3/uL (0.0-0.0); PLATELET COUNT AUTOMATED 237 10*3/uL (130-400); RED CELL DISTRI WIDTH 11.8 % (0-14.5)
[2025-04-21 00:38] LABS: BUN 13 mg/dl (9-23)
[2025-04-21 01:30] VITALS: BP 132/84
== END 2025-04-21 03:57 | disposition home or self-care (01) ==
LOC: ED 21:52
PROVIDERS: Emergency Medicine
DX: G43.909 Migraine, unspecified, not intractable, without status migrainosus (principal); E11.65 Type 2 diabetes mellitus with hyperglycemia; F41.9 Anxiety disorder, unspecified; Z86.19 Personal history of other infectious and parasitic diseases; Z90.710 Acquired absence of both cervix and uterus; Z88.0 Allergy status to penicillin; Z88.1 Allergy status to other antibiotic agents; Z88.8 Allergy status to other drugs, medicaments and biological substances